=== PATIENT | female | born 1960 | race Caucasian/White ===

== ENCOUNTER 2018-07-13 20:07 | Emergency (ER) | payer OTHER ==
[2018-07-13 21:33] LABS: Amphetamine Screen,Urine Not Detected (NotDetected); Barbiturate Screen,Urine Not Detected (NotDetected); Benzodiazepines Screen,Urine Not Detected (NotDetected); Cocaine Screen,Urine Not Detected (NotDetected); Methadone Screen, Urine Not Detected (NotDetected); Opiate Screen,Urine Detected (NotDetected); Oxycodone Screen, Urine Not Detected (NotDetected); Phencyclidine Screen,Urine Not Detected (NotDetected); Tricyclic Antidepressant,Urine Not Detected (NotDetected); Urn Cannabinoid Scrn Not Detected (NotDetected)
--- NOTE | 2018-07-13 21:45 | ED ---
Psych HPI - General Source: patient Mode of arrival: wheelchair - History of Present Illness MD Complaint: suicidal ideation, feels depressed -: week(s) Associated Psychiatric Symptoms: depression Quality: constant Improves With: none Worsens With: alcohol Context: significant life stressor Associated Symptoms: denies other symptoms <Moses Grace - Last Filed: 07/13/18 21:42> <Booker Torre - Last Filed: 07/14/18 13:20> - General Chief Complaint: Psychiatric Symptoms Stated Complaint: mental health Time Seen by Provider: 07/13/18 20:55 - History of Present Illness Initial Comments: Patient's 58-year-old woman here for psychiatric evaluation. The patient admits to feeling very stressed as she is in the process of caring for her mother who is a fci, and she states she also is dealing with a who does not appreciate her. She states that she had been drinking tonight as a way to cope with stress. She states she wants to sleep for a long time and just avoid distress. Patient admits telling her daughter that she felt like at times she would be better off . Patient's daughter felt she should've psychiatric evaluation. (Moses Grace) - Related Data Home Medications Medication Instructions Recorded Confirmed Atenolol 50 mg PO BID 02/25/14 07/13/18 Gabapentin 300 mg PO TID 02/25/14 07/13/18 HYDROcodone/APAP 10-325MG [[place] 1 tab PO QID 02/25/14 07/13/18 10-325] Isosorbide Mononitrate [Imdur] 30 mg PO DAILY 02/25/14 07/13/18 Lisinopril [Prinivil] 15 mg PO DAILY 02/25/14 07/13/18 Omeprazole [PriLOSEC] 20 mg PO AC-BID 02/25/14 07/13/18 Zolpidem [Ambien] 10 mg PO HS 02/25/14 07/13/18 Albuterol Inhaler [Ventolin Hfa 1 - 2 puff INHALATION RT-Q6H PRN 07/13/18 Inhaler] Albuterol Nebulized [Ventolin 2.5 mg INHALATION RT-Q6H PRN 07/13/18 07/13/18 Nebulized] Previous Rx's Medication Instructions Recorded clonazePAM [KlonoPIN] 2 mg PO BID #30 tablet 03/01/14 Allergies Allergy/AdvReac Type Severity Reaction Status Date / Time morphine Allergy Unknown Verified 07/13/18 20:56 Sulfa (Sulfonamide Allergy Unknown Verified 07/13/18 20:56 Antibiotics) Review of Systems ROS Other: All systems not noted in ROS Statement are negative. Constitutional: Denies: fever, chills Respiratory: Denies: cough, dyspnea Cardiovascular: Denies: chest pain, palpitations Gastrointestinal: Denies: abdominal pain, vomiting, diarrhea Genitourinary: Denies: dysuria, hematuria Musculoskeletal: Denies: back pain Skin: Denies: rash Neurological: Denies: headache, weakness, numbness <Moses Grace - Last Filed: 07/13/18 21:42> ROS Other: All systems not noted in ROS Statement are negative. <Booker Torre - Last Filed: 07/14/18 13:20> ROS Statement: Those systems with pertinent positive or pertinent negative responses have been documented in the HPI. Past Medical History Past Medical History: Coronary Artery Disease (CAD), COPD, CVA/TIA, Fibromyalgia , Hyperlipidemia, Hypertension, Osteoarthritis (OA) Additional Past Medical History / Comment(s): STROKE-pt reports 3 years ago. History of Any Multi-Drug Resistant Organisms: None Reported Past Surgical History: Section, Heart Catheterization Additional Past Surgical History / Comment(s): 4 Sections. Pt reports she had 4 neck surgeries in the past. She would not elaborate into further detail but states it is related to her suicide attempts. Past Anesthesia/Blood Transfusion Reactions: No Reported Reaction Past Psychological History: Anxiety, Depression Smoking Status: Current every day smoker Past Alcohol Use History: Heavy Past Drug Use History: None Reported - Past Family History Mother Family Medical History: Chest Pain / Angina Father Family Medical History: Diabetes Mellitus <Moses Grace - Last Filed: 07/13/18 21:42> General Exam Limitations: no limitations General appearance: alert, appears intoxicated, obese Head exam: Present: atraumatic, normocephalic Eye exam: Present: normal appearance, EOMI, nystagmus. Absent: scleral icterus , conjunctival injection ENT exam: Present: mucous membranes dry Neck exam: Present: normal inspection, full ROM Respiratory exam: Present: normal lung sounds bilaterally. Absent: respiratory distress, wheezes, rales, rhonchi, stridor Cardiovascular Exam: Present: regular rate, normal rhythm, normal heart sounds. Absent: systolic murmur, diastolic murmur, rubs, gallop GI/Abdominal exam: Present: soft. Absent: distended, tenderness, guarding, rebound, rigid, mass Extremities exam: Present: normal inspection, normal capillary refill. Absent: pedal edema, calf tenderness Back exam: Present: normal inspection Neurological exam: Present: alert, oriented X3. Absent: motor sensory deficit Psychiatric exam: Present: depressed (Tearful), anxious. Absent: agitated, flat affect, manic, homicidal ideation, suicidal ideation Skin exam: Present: warm, dry, intact, normal color. Absent: rash <Moses Grace - Last Filed: 07/13/18 21:42> Vital Signs 07/13/18 07/13/18 07/14/18 20:11 21:15 10:03 Temperature 98.6 F 98.6 F 98.4 F Pulse Rate 90 90 80 Respiratory 20 20 18 Rate Blood Pressure 102/56 102/56 149/97 O2 Sat by Pulse 99 99 95 Oximetry Medical Decision Making <Moses Grace - Last Filed: 07/13/18 21:42> - Lab Data Result diagrams: 07/13/18 22:08 07/13/18 22:08 <Booker Torre - Last Filed: 07/14/18 13:20> - Medical Decision Making Patient was seen by psychiatric services who does recommend discharge. Patient reevaluated by myself, Dr. Torre. Patient resting comfortably in bed. Patient denies suicidal ideation and does contract for safety. (Booker Torre) - Lab Data Lab Results 07/13/18 07/13/18 07/13/18 Range/Units 21:16 22:08 22:08 WBC 9.7 (3.8-10.6) k/uL RBC 4.83 (3.80-5.40) m/uL Hgb 15.1 (11.4-16.0) gm/dL Hct 45.9 (34.0-46.0) % MCV 95.0 (80.0-100.0) fL MCH 31.2 (25.0-35.0) pg MCHC 32.9 (31.0-37.0) g/dL RDW 13.9 (11.5-15.5) % Plt Count 228 (150-450) k/uL Neutrophils % 47 % Lymphocytes % 43 % Monocytes % 6 % Eosinophils % 1 % Basophils % 1 % Neutrophils # 4.6 (1.3-7.7) k/uL Lymphocytes # 4.2 (1.0-4.8) k/uL Monocytes # 0.5 (0-1.0) k/uL Eosinophils # 0.1 (0-0.7) k/uL Basophils # 0.1 (0-0.2) k/uL Sodium 141 (137-145) mmol/L Potassium 4.3 (3.5-5.1) mmol/L Chloride 108 H (98-107) mmol/L Carbon Dioxide 24 (22-30) mmol/L Anion Gap 9 mmol/L BUN 18 H (7-17) mg/dL Creatinine 1.28 H (0.52-1.04) mg/dL Est GFR (CKD-EPI)AfAm 54 (>60 ml/min/1.73 sqM) Est GFR (CKD-EPI)NonAf 47 (>60 ml/min/1.73 sqM) Glucose 122 H (74-99) mg/dL Calcium 8.8 (8.4-10.2) mg/dL Magnesium 2.0 (1.6-2.3) mg/dL Urine Opiates Screen Detected H (NotDetected) Ur Oxycodone Screen Not Detected (NotDetected) Urine Methadone Screen Not Detected (NotDetected) Ur Propoxyphene Screen Not Detected (NotDetected) Acetaminophen <10.0 ug/mL Ur Barbiturates Screen Not Detected (NotDetected) U Tricyclic Antidepress Not Detected (NotDetected) Ur Phencyclidine Scrn Not Detected (NotDetected) Ur Amphetamines Screen Not Detected (NotDetected) U Methamphetamines Scrn Not Detected (NotDetected) U Benzodiazepines Scrn Not Detected (NotDetected) Urine Cocaine Screen Not Detected (NotDetected) U Marijuana (THC) Screen Not Detected (NotDetected) Disposition <M[facility] Grace - Last Filed: 07/13/18 21:42> Is patient prescribed a controlled substance at d/c from ED?: No <Booker Torre - Last Filed: 07/14/18 13:20> Clinical Impression: Depression Disposition: HOME SELF-CARE Condition: Stable Instructions: Suicide Prevention (ED), Depression (ED) Additional Instructions: Please follow-up with primary care physician and your counselor in the next couple days for recheck. Return for thoughts of self-harm, worsening symptoms or other concerns. Referrals: Malou Geronimo MD [STAFF PHYSICIAN] - 1-2 days
[2018-07-13 22:23] LABS: Basophils # (A) 0.1 k/uL (0-0.2); Basophils % (A) 1 %; Eosinophils # (A) 0.1 k/uL (0-0.7); Eosinophils % (A) 1 %; HCT 45.9 % (34.0-46.0); HGB 15.1 gm/dL (11.4-16.0); Lymphocytes # (A) 4.2 k/uL (1.0-4.8); Lymphocytes % (A) 43 %; MCH 31.2 pg (25.0-35.0); MCHC 32.9 g/dL (31.0-37.0); Mean Platelet Volume 7.4; Monocytes # (A) 0.5 k/uL (0-1.0); Monocytes % (A) 6 %; Neutrophils # (A) 4.6 k/uL (1.3-7.7); Neutrophils % (A) 47 %; Platelet Count 228 k/uL (150-450); RBC 4.83 m/uL (3.80-5.40); RDW 13.9 % (11.5-15.5); WBC 9.7 k/uL (3.8-10.6)
[2018-07-13 22:38] LABS: Acetaminophen <10.0 ug/mL; Anion Gap 9 mmol/L; Blood Urea Nitrogen 18 mg/dL (7-17); Calcium 8.8 mg/dL (8.4-10.2); Carbon Dioxide 24 mmol/L (22-30); Chloride 108 mmol/L (98-107); Glucose 122 mg/dL (74-99); Potassium 4.3 mmol/L (3.5-5.1); Sodium 141 mmol/L (137-145)
[2018-07-13] MEDS ORDERED: ALBUTEROL NEBULIZED 2.5 MG/3 ML INHALATION STA (23:52)
--- NOTE | 2018-07-14 07:19 | CDI ---
Dear Moses Grace MD: Please do addendum Clinical Impression and Disposition. Thank you, Isabel Cano, Backend Tester. If you have any questions, please contact Proc Tech at [phone]. MTDD
[2018-07-14 10:04] VITALS: RESP 18
[2018-07-14 13:41] VITALS: BP 144/92; PULSE 54; TEMP 97.4
== END 2018-07-14 13:39 | disposition home or self-care (01) ==
LOC: EC 20:07
DX: F32.9 Major depressive disorder, single episode, unspecified (principal); R45.83 Excessive crying of child, adolescent or adult; F10.129 Alcohol abuse with intoxication, unspecified; H55.00 Unspecified nystagmus; Z63.79 Other stressful life events affecting family and household; J44.9 Chronic obstructive pulmonary disease, unspecified; I10 Essential (primary) hypertension; I25.10 Atherosclerotic heart disease of native coronary artery without angina pectoris; M79.7 Fibromyalgia; F41.9 Anxiety disorder, unspecified; F17.200 Nicotine dependence, unspecified, uncomplicated; Z88.2 Allergy status to sulfonamides; Z88.5 Allergy status to narcotic agent; Z79.891 Long term (current) use of opiate analgesic; Z79.899 Other long term (current) drug therapy; Z95.9 Presence of cardiac and vascular implant and graft, unspecified; Z98.890 Other specified postprocedural states
CPT/HCPCS: 36415; 80048; 80306; 82075; 83520; 83735; 85025; 99285

== ENCOUNTER → 2021-06-12 | Outpatient (CLI) | payer OTHER ==
[2021-06-12 23:16] LABS: Basophils # (A) 0.05 X 10*3/uL (0.00-0.10); Basophils % (A) 0.5 %; Eosinophils # (A) 0.22 X 10*3/uL (0.04-0.35); Eosinophils % (A) 2.3 %; HCT 45.5 % (37.2-46.3); HGB 15.1 g/dL (12.0-15.0); Lymphocytes # (A) 3.32 X 10*3/uL (0.90-5.00); Lymphocytes % (A) 34.5 %; MCH 30.1 pg (27.0-32.0); MCHC 33.2 g/dL (32.0-37.0); MCV 90.8 fL (80.0-97.0); Mean Platelet Volume 12.3 fL (9.5-12.2); Monocytes # (A) 0.83 X 10*3/uL (0.20-1.00); Monocytes % (A) 8.6 %; Neutrophils # (A) 5.08 X 10*3/uL (1.80-7.70); Neutrophils % (A) 52.9 %; Platelet Count 201 X 10*3/uL (140-440); RBC 5.01 X 10*6/uL (4.10-5.20); RDW 12.4 % (11.5-14.5); WBC 9.62 X 10*3/uL (4.50-10.00)
[2021-06-13 04:36] LABS: African American GFR (CKD) 93.5 (60.0-200.0); Albumin 4.2 g/dL (3.80-4.90); Albumin/Globulin Ratio 1.5 (1.60-3.17); Anion Gap 13.4 mmol/L (4.00-12.00); BUN/Creat Ratio 22.5 Ratio (12.00-20.00); Calcium 9.2 mg/dL (8.7-10.3); Carbon Dioxide 24.6 mmol/L (21.6-31.8); Globulin 2.8 g/dL (1.6-3.3); Non-African American GFR(CKD) 80.7 (60.0-200.0); Total Bilirubin 0.8 mg/dL (0.2-1.2)
== END | disposition home or self-care (01) ==
LOC: LABWHC1 16:09
PROVIDERS: ATTEND Psychiatry & Neurology Neurology
DX: I63.9 Cerebral infarction, unspecified (principal)
CPT/HCPCS: 36415; 80053; 83090; 85025